=== PATIENT | female | born 1995 | race Caucasian/White ===

== ENCOUNTER 2023-03-25 17:03 | Outpatient (CLI) | payer OTHER ==
[~2023-03-25] VITALS: Ht 162.6 cm; Wt 91.8 kg
--- NOTE | 2023-03-25 17:10 | NUR ---
PATIENT AMBULATORY TO UNIT WITH SPOUSE AND DAUGHTER. MARTITA REPORTS DECREASED MOVEMENT WITH POSSIBLE HICCUPS AROUND 1645, NO LEAKING OF FLUID OR VAGINAL BLEEDING, NO CONTRACTIONS. PATIENT DOES NOT GET CARE [facility]ROUGH [facility] SHE IS SEEN IN [place]. PATIENT STATES SHE IS SEEN THERE DUE TO IUGR (3RD%TILE) PER PATIENT. NO OTHER COMPLICATIONS PER PATIENT. EFM AND TOCO PLACED AND TRACING, THIS RN OBTAINS SOME ASSESSMENT INFORMATION FROM PATIENT. 1725- THIS RN AT NURSES STATION TO SPEAK WITH , WOULD LIKE PRENATALS IF POSSIBLE AND TO MONITOR.
[2023-03-25] MEDS ORDERED: PROFE180 MG PO (17:26)
[2023-03-25 17:30] VITALS: BP 130/82; PULSE 94; TEMP 99
[2023-03-25 18:00] VITALS: BP 124/73; PULSE 78
[2023-03-25] MEDS ORDERED: LR 1,000 ML IV PRN (18:15)
== END 2023-03-25 18:30 | disposition home or self-care (01) ==
LOC: LDRO 17:03
DX: O36.8130 Decreased fetal movements, third trimester, not applicable or unspecified (principal); Z3A.32 32 weeks gestation of pregnancy